=== PATIENT | male | born 1990 | race Caucasian/White ===

== ENCOUNTER 2025-04-22 09:54 | Emergency (ER) | payer SELFPAY ==
[2025-04-22 10:07] VITALS: BP 102/68; PULSE 85; RESP 16; TEMP 36.8; O2SAT 98; BMI 25.7
[2025-04-22] MEDS: tetracaine 0.5% Op Soln 4 mL Btl 1 DROP EYE-BOTH (13:04)
--- NOTE | 2025-04-22 13:45 | W.ED.EYEPROB ---
Documented by User: RITU Kaufman 04/23/25 13:20 HPI - Eye Problem General: Chief complaint: Eye Problems Stated complaint: grinding rock in left eye Time Seen by Provider: 04/22/25 10:11 Source: patient Mode of arrival: ambulatory Limitations: no limitations History of Present Illness: Please patient is a 35-year-old male who presents the emergency department complaining of a grinding rock in his left eye. States that he was using a eyeglass lens grinder when the rock struck to his left eye, this occurred yesterday. States that he is here for procedure to have this removed, he has flushed his eye out copiously with no change. He has conjunctival injection diffusely, endorsing some blurred vision. No periorbital symptoms reported, no double vision. He has had this in the past, and has seen ophthalmology. Vitals are stable at this time. Nontoxic-appearing at bedside. MD chief complaint: eye redness, eye injury and foreign body Onset (ago): day(s) Onset description: sudden Duration: constant Location: left eye Place: home Mechanism: occurred while hammering/grinding Associated symptoms: Denies fever(s), headache(s), nausea, neck pain or vomiting Related Data Previous Rx's ?Medication ?Instructions ?Recorded erythromycin 5 mg/gram (0.5 %) eye 1 applic ophthalmic (eye) DAILY 04/22/25 ointment (3.5 gram tube) #3.5 grams Allergies Allergy/AdvReac Type Severity Reaction Status Date / Time No Known Allergies Allergy Verified 04/22/25 10:09 Review of Systems General: Reports: 10 or more systems reviewed and unremarkable except in HPI and below Const: Denies: fever(s), chills or fatigue Eyes: Reports: change in vision, blurry vision, eye discomfort, eye redness and other (foreign body) ENMT: Denies: throat pain, ear or mastoid pain or nasal discharge Card: Denies: chest pain, palpitations, swelling of feet/ankles or lightheadedness Resp: Denies: dyspnea, productive cough or wheezing GI: Denies: abdominal pain, nausea, vomiting, diarrhea or constipation : Denies: flank pain, difficulty urinating, dysuria or urinary frequency Musc: Denies: neck pain, back pain or joint pain Skin/Breast: Denies: rash Neuro: Denies: headache(s), numbness in extremities or weakness in extremities Physical Exam Const: COMMON NORMALS: no acute distress and no limitations GENERAL APPEARANCE: cooperative, comfortable and well developed ORIENTATION/CONSCIOUSNESS: Yes awake HENMT: COMMON NORMALS: normocephalic, atraumatic and hearing grossly normal bilaterally HEAD & SCALP: normocephalic and atraumatic Eye: OTHER: Conjunctival injection diffusely to the left eye, obvious foreign body to medial aspect. Surrounding conjunctival edema. Fluorescein staining showing positive abrasion associated with the foreign body, negative Sidel sign. No concerning periorbital findings, no proptosis. Neck/C-Spine: COMMON NORMALS: full ROM, supple and no JVD Resp: COMMON NORMALS: normal respiratory effort, No retractions, No use of accessory muscles and clear to auscultation bilaterally AUSCULTATION: clear to auscultation bilaterally Cardio: COMMON NORMALS: no JVD, regular rate, regular rhythm, No clicks present (Cardio), No murmurs present (Cardio) and No rub (Cardio) RATE: regular rate RHYTHM: regular rhythm Extremity: COMMON NORMALS: normal to inspection, full ROM and capillary refill normal Skin: COMMON NORMALS: no rashes or lesions noted GENERAL SKIN EXAM: no rashes or lesions noted Course Vital Signs: Vital signs: Vital Signs Temperature 98.2 F 04/22/25 10:07 Pulse Rate 85 04/22/25 10:07 Respiratory Rate 16 04/22/25 10:07 Blood Pressure 102/68 04/22/25 10:07 Pulse Oximetry 98 04/22/25 10:07 Oxygen Delivery Me thod Room Air 04/22/25 10:07 MDM - Eye Problem Medical Decision Making Patient presenting after getting grinding rock sediment in his eye, history of similar states that he has previously seen ophthalmology and had it mechanically removed. In the left eye to the medial aspect, I am unable to flush out the piece of rock or manually retrieve it under tetracaine local anesthesia, fluorescein staining showing adjacent corneal abrasion. I spoke to on-call hemology, they are stating they will get the patient into their office shortly if they are to leave the ED at this time, and I informed patient to head over to ophthalmology clinic for this procedure. Erythromycin ointment will be prescribed at the pharmacy and patient discharged at this time. Negative Sidel sign and no concerning periorbital findings by exam. No radiology studies performed this visit Discharge Plan Discharge Patient Disposition: Home Clinical Impression: Corneal abrasion Qualifiers: Encounter type: initial encounter Laterality: left Qualified Code(s): S05.02XA - Injury of conjunctiva and corneal abrasion without foreign body, left eye, initial encounter Condition: Stable Prescriptions: New erythromycin 5 mg/gram (0.5 %) ointment 1 applic ophthalmic (eye) DAILY Qty: 3.5 0RF Discharge Orders: Discharge ED (Routine); Ordered 04/22/25 Ordered By: Aleks Pan Patient Instructions: Patient Portal & [facility] Instructions Activity Restrictions/Additional Instructions: Go to ophthalmology clinic for further treatment. Erythromycin topical will be sent to pharmacy, apply this as directed. Print Language: Chinese Coding Level of Care Code ED Planting Material Carrier for Chg Fwd Documented by User: Edison Hill DO 04/23/25 14:36 HPI - Eye Problem General: Chief complaint: Eye Problems Stated complaint: grinding rock in left eye Time Seen by Provider: 04/22/25 10:11 Related Data Previous Rx's ?Medication ?Instructions ?Recorded erythromycin 5 mg/gram (0.5 %) eye 1 applic ophthalmic (eye) DAILY 04/22/25 ointment (3.5 gram tube) #3.5 grams Allergies Allergy/AdvReac Type Severity Reaction Status Date / Time No Known Allergies Allergy Verified 04/22/25 10:09 Course Vital Signs: Vital signs: Vital Signs Temperature 98.2 F 04/22/25 10:07 Pulse Rate 85 04/22/25 10:07 Respiratory Rate 16 04/22/25 10:07 Blood Pressure 102/68 04/22/25 10:07 Pulse Oximetry 98 04/22/25 10:07 Oxygen Delivery Me thod Room Air 04/22/25 10:07 MDM - Eye Problem Medical Decision Making Patient presenting after getting grinding rock sediment in his eye, history of similar states that he has previously seen ophthalmology and had it mechanically removed. In the left eye to the medial aspect, I am unable to flush out the piece of rock or manually retrieve it under tetracaine local anesthesia, fluorescein staining showing adjacent corneal abrasion. I spoke to on-call hemology, they are stating they will get the patient into their office shortly if they are to leave the ED at this time, and I informed patient to head over to ophthalmology clinic for this procedure. Erythromycin ointment will be prescribed at the pharmacy and patient discharged at this time. Negative Sidel sign and no concerning periorbital findings by exam. Chart reviewed and patient discussed with midlevel. Agree with assessment and plan. Discharge Plan Discharge Patient Disposition: Home Clinical Impression: Corneal abrasion Qualifiers: Encounter type: initial encounter Laterality: left Qualified Code(s): S05.02XA - Injury of conjunctiva and corneal abrasion without foreign body, left eye, initial encounter Condition: Stable Prescriptions: New erythromycin 5 mg/gram (0.5 %) ointment 1 applic ophthalmic (eye) DAILY Qty: 3.5 0RF Discharge Orders: Discharge ED (Routine); Ordered 04/22/25 Ordered By: Aleks Pan Patient Instructions: Patient Portal & [facility] Instructions Activity Restrictions/Additional Instructions: Go to ophthalmology clinic for further treatment. Erythromycin topical will be sent to pharmacy, apply this as directed. Print Language: Chinese Coding Level of Care Code ED Planting Material Carrier for Jennifer Millan
--- NOTE | 2025-04-22 14:15 | DCPLANNER ---
faxed referral packet to Ruddy estrada
== END 2025-04-22 14:26 | disposition home or self-care (01) ==
PROVIDERS: Emergency Provider Physician Assistant
DX: S05.02XA Injury of conjunctiva and corneal abrasion without foreign body, left eye, initial encounter (principal); X58.XXXA Exposure to other specified factors, initial encounter
CPT/HCPCS: 99283; J9999